=== PATIENT | female | born 2000 | race Two or more races ===

== ENCOUNTER 2025-02-12 16:30 | Emergency (ER) | payer OTHER ==
[~2025-02-12] VITALS: Ht 160 cm; Wt 49.4 kg
[2025-02-12] MEDS ORDERED: ESCITALOPRAM OX10 MG PO (17:14)
[2025-02-12 17:15] VITALS: BP 127/78; O2SAT 98
[2025-02-12] MEDS ORDERED: hydrOXYzine PAMOATE 50 MG CAPSULE PO STA (17:33)
[2025-02-12] MEDS ORDERED: METOCLOPRAMIDE HCL 5 MG/ML VIAL IM STA (17:33)
[2025-02-12] MEDS ORDERED: hydrOXYzine PAMOATE 50 MG CAPSULE PO ONE (18:30)
[2025-02-12] MEDS ORDERED: METOCLOPRAMIDE HCL 5 MG/ML VIAL ONE (18:30)
== END 2025-02-12 19:18 | disposition home or self-care (01) ==
LOC: ER 16:31
DX: K21.9 Gastro-esophageal reflux disease without esophagitis (principal); Z91.048 Other nonmedicinal substance allergy status